=== PATIENT | male | born 1965 | race Caucasian/White ===

== ENCOUNTER 2022-09-09 10:21 | Inpatient (IN) | payer OTHER ==
[2022-09-09] VITALS (16 sets, daily range): BP systolic 89–125; BP diastolic 46–74; PULSE 136–170; RESP 10–29; TEMP 98.1–98.2
[~2022-09-09] VITALS: Ht 165.1 cm; Wt 83.5 kg
[2022-09-09] MEDS ORDERED: ADENOSINE 3 MG/ML 2ML VIAL IV ONE ×2 (10:45)
[2022-09-09 11:12] LABS: BASOPHILS % 0.6 % (0.0-2.0); EOSINOPHILS % 0.8 % (0.0-5.0); HEMATOCRIT. 48.1 % (42.0-52.0); HEMOGLOBIN. 16.2 g/dL (14.0-18.0); LYMPHOCYTES % 30.8 % (20.0-50.0); MEAN CORPUSCULAR HEMOGLOBIN 28.9 pg (28.0-32.0); MEAN CORPUSCULAR VOLUME 85.5 fL (80.0-94.0); MEAN PLATELET VOLUME 8.4 fl (7.4-10.4); MONOCYTES % 4.2 % (2.0-8.0); NEUTROPHILS % 63.6 % (40.0-76.0); PLATELET 230 x1000/uL (130-400); RED BLOOD CELL COUNT 5.63 mill/uL (4.7-6.1); RED CELL DISTRIBUTION WIDTH 13.1 % (11.6-14.6)
[2022-09-09] MEDS ORDERED: SODIUM CHLORIDE 0.9% 1,000 ML IV ONE (11:15)
[2022-09-09] MEDS ORDERED: DILTIAZEM HCL 5MG/ML 5ML VIAL IV ONE ×2 (11:15→11:30)
[2022-09-09] MEDS ORDERED: DILTIAZEM HCL 90MG TABLET PO ONE (11:15)
[2022-09-09 11:20] LABS: CHLORIDE 107 mEq/L (98-107)
[2022-09-09] MEDS ORDERED: DILTIAZEM HCL 125 MG in DEXT 5% WATER 100 ML IV ONE ×2 (12:45→13:00)
[2022-09-09] MEDS ORDERED: IPRATROPIUM/ALBUTEROL 0.5-3(2.5)MG/3ML NEB HHN PRN (14:30)
[2022-09-09] MEDS ORDERED: GUAIFENESIN 200MG/10ML SUGAR FREE UDC PO PRN (14:30)
[2022-09-09] MEDS ORDERED: DOCUSATE SODIUM 100MG CAPSULE PO PRN (14:30)
[2022-09-09] MEDS ORDERED: MAGNESIUM/ALUMINUM HYDROXIDE/SIMETHICONE 30ML UDC PO PRN (14:30)
[2022-09-09] MEDS ORDERED: SODIUM CHLORIDE 0.45% 250 ML IV ONE (14:30)
[2022-09-09] MEDS ORDERED: ONDANSETRON HCL 4MG/2ML INJ IV PRN (14:30)
[2022-09-09] MEDS ORDERED: ACETAMINOPHEN 325MG TABLET PO PRN ×2 (14:30)
[2022-09-09] MEDS ORDERED: CLONIDINE 0.1MG TABLET PO PRN (14:30)
[2022-09-09] MEDS ORDERED: AMIODARONE HCL 900 MG in DEXT 5% WATER 482 ML IV SCH (15:00)
[2022-09-09] MEDS ORDERED: PHENYLEPHRINE 50 MG in DEXT 5% WATER 245 ML IV PRN (15:00)
[2022-09-09] MEDS: AMIODARONE HCL 150 MG in DEXT 5% WATER 100 ML IV SCH ×2 (15:17→16:44)
[2022-09-09] MEDS ORDERED: DIGOXIN 500MCG/2ML AMP IV NR ×3 (15:45→23:30)
[2022-09-09] MEDS: AMIODARONE HCL 900 MG in DEXT 5% WATER 482 ML IV SCH (15:55)
[2022-09-09] MEDS ORDERED: RIVAROXABAN 10 MG TABLET PO SCH (17:00)
[2022-09-09] MEDS ORDERED: SODIUM CHLORIDE 0.45% 250 ML IV NR (17:56)
[2022-09-09] MEDS ORDERED: SODIUM CHLORIDE 0.45% 250 ML IV SCH (19:00)
[2022-09-09 19:47] LABS: *AMPHETAMINES SCREEN URINE NEGATIVE (NEGATIVE); *BARBITURATES SCREEN URINE NEGATIVE (NEGATIVE); *BENZODIAZEPINES SCREEN URINE NEGATIVE (NEGATIVE); *COCAINE SCREEN URINE NEGATIVE (NEGATIVE); CANNABINOID URINE SCREEN NEGATIVE (NEGATIVE); METHADONE URINE SCREEN NEGATIVE (NEGATIVE); OPIATES URINE SCREEN NEGATIVE (NEGATIVE); PHENCYCLIDINE URINE SCREEN NEGATIVE (NEGATIVE)
[2022-09-09] MEDS: METOPROLOL TARTRATE 25MG TABLET PO SCH ×2 (21:59→22:12)
[2022-09-09] MEDS: ATORVASTATIN CALCIUM 40MG TABLET PO SCH (22:05)
[2022-09-09] MEDS: FAMOTIDINE 20MG/2ML VIAL IV SCH (22:06)
[2022-09-09 23:07] LABS: CREATINE KINASE MB FRACTION 3.4 ng/mL (0.5-3.6)
[2022-09-10] VITALS (54 sets, daily range): BP systolic 93–157; BP diastolic 35–99; PULSE 75–155; RESP 6–42; TEMP 97.6–98.6
[2022-09-10] MEDS ORDERED: DIGOXIN 125MCG TABLET PO NR
[2022-09-10 05:32] LABS: BASOPHILS % 0.5 % (0.0-2.0); EOSINOPHILS % 0.7 % (0.0-5.0); HEMOGLOBIN. 15.5 g/dL (14.0-18.0); LYMPHOCYTES % 25.1 % (20.0-50.0); MEAN CORPUSCULAR HEMOGLOBIN 28.7 pg (28.0-32.0); MEAN CORPUSCULAR VOLUME 85.1 fL (80.0-94.0); MEAN PLATELET VOLUME 8.8 fl (7.4-10.4); MONOCYTES % 6.9 % (2.0-8.0); NEUTROPHILS % 66.8 % (40.0-76.0); PLATELET 227 x1000/uL (130-400); RED BLOOD CELL COUNT 5.41 mill/uL (4.7-6.1); RED CELL DISTRIBUTION WIDTH 13.2 % (11.6-14.6)
[2022-09-10 05:41] LABS: CHLORIDE 107 mEq/L (98-107)
[2022-09-10] MEDS: AMIODARONE HCL 900 MG in DEXT 5% WATER 482 ML IV SCH (05:49)
[2022-09-10 06:08] LABS: CREATINE KINASE 77 IU/L (39-308); CREATINE KINASE MB FRACTION 3.2 ng/mL (0.5-3.6); HDL CHOLESTEROL 36 mg/dL (40-59); LDL CHOLESTEROL 124 mg/dL (5-100); T4 FREE 1.13 ng/dL (0.76-1.46)
[2022-09-10] MEDS: ASPIRIN 81MG EC TABLET PO SCH (08:36)
[2022-09-10] MEDS: FAMOTIDINE 20MG/2ML VIAL IV SCH ×2 (08:36→21:09)
[2022-09-10] MEDS: DILTIAZEM HCL 30MG TABLET PO SCH ×2 (12:50→17:30)
[2022-09-10] MEDS: AMIODARONE HCL 200 MG TABLET PO SCH ×2 (12:53→21:08)
[2022-09-10] MEDS ORDERED: RIVAROXABAN 20 MG TABLET PO SCH (17:17)
[2022-09-10] MEDS: ATORVASTATIN CALCIUM 40MG TABLET PO SCH (21:10)
[2022-09-11] VITALS (28 sets, daily range): BP systolic 100–158; BP diastolic 49–97; PULSE 60–111; RESP 5–27; TEMP 97.8–99.2; O2SAT 98
[2022-09-11] MEDS: DILTIAZEM HCL 30MG TABLET PO SCH ×3 (00:17→14:21)
[2022-09-11 05:18] LABS: HEMATOCRIT 46.2 % (42.0-52.0); HEMOGLOBIN 15.6 g/dL (14.0-18.0); MEAN CORPUSCULAR HEMOGLOBIN 28.6 pg (28.0-32.0); MEAN CORPUSCULAR VOLUME 84.9 fL (80.0-94.0); PLATELET 207 x1000/uL (130-400); RED BLOOD CELL COUNT 5.44 mill/uL (4.7-6.1); RED CELL DISTRIBUTION WIDTH 12.9 % (11.6-14.6)
[2022-09-11 05:30] LABS: CHLORIDE 105 mEq/L (98-107)
[2022-09-11] MEDS: ASPIRIN 81MG EC TABLET PO SCH (10:19)
[2022-09-11] MEDS: AMIODARONE HCL 200 MG TABLET PO SCH (10:19)
[2022-09-11] MEDS: FAMOTIDINE 20MG/2ML VIAL IV SCH (10:19)
[2022-09-11] MEDS ORDERED: AMI2 PO ×2 (14:13)
[2022-09-11] MEDS ORDERED: DILT60TA35 PO (14:13)
[2022-09-11] MEDS ORDERED: ASPI-1406 PO (14:13)
[2022-09-11] MEDS ORDERED: LIP40 PO (14:13)
[2022-09-11] MEDS ORDERED: RIVA20TA PO (14:13)
== END 2022-09-11 17:05 | disposition home or self-care (01) | DRG 309 ==
LOC: ER 10:21 → MICUSO 13:44 → EDBEDREQTM 13:47 → EDBEDREQ 13:47 → EDBEDREQSVC 14:44 → 3WST 09-11 07:37
PROVIDERS: ADMIT Internal Medicine; ATTEND Internal Medicine
DX: I48.0 Paroxysmal atrial fibrillation (principal); N17.9 Acute kidney failure, unspecified; E78.5 Hyperlipidemia, unspecified; I10 Essential (primary) hypertension; I47.1 Supraventricular tachycardia; I95.9 Hypotension, unspecified; R73.9 Hyperglycemia, unspecified
CPT/HCPCS: 36415; 71045; 80048; 80053; 80061; 80162; 80305; 82550; 82553; 83036; 83880; 84439; 84443; 84484; 85025; 85027; 93005; 93306; 97161; 99291; J0153; J0282; J1160; J3490; J7030; J7060